=== PATIENT | male | born 1960 | race Caucasian/White ===

== ENCOUNTER 2017-12-12 21:00 | Emergency (ER) | payer OTHER ==
[2017-12-12 21:22] VITALS: BMI 32.1
[2017-12-12 21:30] VITALS: TEMP 98.1
--- NOTE | 2017-12-12 21:34 | ED PDOC ---
Arrival/HPI - General Chief Complaint: Shortness Of Breath Time Seen by Provider: 12/12/17 21:17 Historian: Patient - History of Present Illness Narrative History of Present Illness (Text): 12/12/17 21:33 A 57 year old male, whose past medical history includes diabetes, hyperlipidemia , asthma and cardiac bypass surgery 8 years ago, presents to the emergency department complaining of shortness of breath for 2 hours. Patient notes associated cough with mild phlegm. Patient used Ventolin and Prednisone 10 mg at home, with no relief. Patient denies any fever, chills, nausea, vomiting, abdominal pain, chest pain or any other complaints. PMD: Non [facility]-provider (Dr. Kendall) Time/Duration: Other (2 hours) Symptom Course: Unchanged Context: Home Past Medical History - Provider Review Nursing Documentation Reviewed: Yes - Cardiac Hx Cardiac Disorders: Yes Hx Congestive Heart Failure: Yes Hx Hypertension: Yes - Pulmonary Hx Respiratory Disorders: Yes Hx Asthma: Yes - Neurological Hx Neurological Disorder: No - HEENT Hx HEENT Disorder: No - Renal Hx Renal Disorder: No - Endocrine/Metabolic Hx Endocrine Disorders: Yes Hx Diabetes Mellitus Type 2: Yes - Hematological/Oncological Hx Blood Disorders: No - Integumentary Hx Dermatological Disorder: No - Musculoskeletal/Rheumatological Hx Musculoskeletal Disorders: No - Gastrointestinal Hx Gastrointestinal Disorders: No - Genitourinary/Gynecological Hx Genitourinary Disorders: No - Psychiatric Hx Psychophysiologic Disorder: No Hx Substance Use: No - Surgical History Hx Coronary Artery Bypass Graft: Yes Hx Open Heart Surgery: Yes Family/Social History - Physician Review Nursing Documentation Reviewed: Yes Family/Social History: No Known Family HX Smoking Status: Never Smoked Hx Alcohol Use: No Hx Substance Use: No Allergies/Home Meds Allergies/Adverse Reactions: Allergies No Known Allergies Allergy (Verified 12/12/17 21:22) Home Medications: Home Meds Medication Instructions Recorded Confirmed Aspirin [Aspirin Chewable] 81 mg PO DAILY 07/02/16 12/12/17 Atorvastatin [Lipitor] 20 mg PO DAILY 07/02/16 12/12/17 Carvedilol [Coreg] 6.25 mg PO BID 07/02/16 12/12/17 Glimepiride [Glimepiride] 2 mg PO BID 07/02/16 12/12/17 Lisinopril [Zestril] 10 mg PO DAILY 07/02/16 12/12/17 MetFORMIN [glucoPHAGE] 1,000 mg pe PO BID 07/02/16 12/12/17 Albuterol HFA [Ventolin HFA 90 2 puff IH [id number] PRN 12/12/17 12/12/17 mcg/actuation (8 g)] Review of Systems - Physician Review All systems were reviewed & negative as marked: Yes - Review of Systems Constitutional: absent: Fevers, Night Sweats Respiratory: SOB, Cough, Sputum Cardiovascular: absent: Chest Pain Gastrointestinal: absent: Abdominal Pain, Nausea, Vomiting Physical Exam Vital Signs Reviewed: Yes Vital Signs Temp Pulse Resp BP Pulse Ox 12/12/17 21:40 14 12/12/17 21:25 98.1 F 95 H 20 159/85 H 97 Temperature: Afebrile Blood Pressure: Hypertensive Pulse: Tachycardic Respiratory Rate: Normal Appearance: Positive for: Well-Appearing, Non-Toxic, Comfortable Pain Distress: None Mental Status: Positive for: Alert and Oriented X 3 - Systems Exam Head: Present: Atraumatic, Normocephalic Pupils: Present: PERRL Extroacular Muscles: Present: EOMI Conjunctiva: Present: Normal Mouth: Present: Moist Mucous Membranes Neck: Present: Normal Range of Motion Respiratory/Chest: Present: Good Air Exchange, Wheezes (Diffuse wheezing bilaterally), Retracting (+1 retraction). No: Respiratory Distress, Accessory Muscle Use Cardiovascular: Present: Regular Rate and Rhythm, Normal S1, S2. No: Murmurs Abdomen: Present: Normal Bowel Sounds. No: Tenderness, Distention, Peritoneal Signs Back: Present: Normal Inspection Upper Extremity: Present: Normal Inspection. No: Cyanosis, Edema Lower Extremity: Present: Normal Inspection. No: Edema, CALF TENDERNESS Neurological: Present: GCS=15, CN II-XII Intact, Speech Normal Skin: Present: Warm, Dry, Normal Color. No: Rashes Psychiatric: Present: Alert, Oriented x 3, Normal Insight, Normal Concentration Medical Decision Making ED Course and Treatment: 12/12/17 21:33 Impression: A 57 year old male with shortness of breath and productive cough Differential Diagnosis included but are not limited to: Asthma rule out PNA vs. Influenza Plan: -- Chest xray -- EKG -- Labs -- Blood culture -- Influenza A B stat -- Duoneb and Solumedrol -- Reassess and disposition Progress Notes: 12/12/17 22:01 Chest xray read and interpreted by me, which shows no active disease. 12/12/17 22:23 EKG shows NSR at 77 bpm, no ST elevations, nl intervals 12/12/17 23:[address] Das to f/u Influenza, reevaluate and disposition. - Critical Care Critical Care Minutes: 30 minutes - Lab Interpretations Lab Results: 12/12/17 22:00 12/12/17 22:00 Lab Results 12/12/17 22:00: Sodium 134, Potassium 4.1, Chloride 101, Carbon Dioxide 23, Anion Gap 13, BUN 19, Creatinine 0.7 L, Est GFR ( Amer) > 60, Est GFR ( Non-Af Amer) > 60, Random Glucose 229 H, Calcium 9.4, Lactate Dehydrogenase 412 , Total Creatine Kinase 81, Troponin I < 0.01, NT-Pro-B Natriuret Pep 112 12/12/17 22:00: WBC 10.5, RBC 4.72, Hgb 14.9, Hct 43.4, MCV 91.9, MCH 31.6, MCHC 34.3, RDW 13.4, Plt Count 334, MPV 9.9, Gran % 69.4 H, Lymph % (Auto) 21.4 L, [place] % (Auto) 6.4 H, Eos % (Auto) 2.5, Baso % (Auto) 0.3, Gran # 7.32 H, Lymph # 2.3, [place] # 0.7 H, Eos # 0.3, Baso # 0.03 I have reviewed the lab results: Yes - RAD Interpretation Radiology Orders: 12/12/17 21:36 CHEST PORTABLE [RAD] Stat - Medication Orders Current Medication Orders: Discontinued Medications Albuterol/Ipratropium (Duoneb 3 Mg/0.5 Mg (3 Ml) Ud) 3 ml IH Q15M OSWALD Stop: 12/12/17 22:16 Last Admin: 12/12/17 22:36 Dose: 3 ml Methylprednisolone (Solu-Medrol) 125 mg IVP STAT STA Stop: 12/12/17 21:36 Last Admin: 12/12/17 22:00 Dose: 125 mg IVP Administration Document 12/12/17 22:00 LADONNA (Rec: 12/12/17 22:35 [email or web address]) Charges for Administration # of IVP Administrations 1 - Scribe Statement The provider has reviewed the documentation as recorded by the Scribe Светлана Lilly Provider Scribe Attestation: All medical record entries made by the Scribe were at my direction and personally dictated by me. I have reviewed the chart and agree that the record accurately reflects my personal performance of the history, physical exam, medical decision making, and the department course for this patient. I have also personally directed, reviewed, and agree with the discharge instructions and disposition. Disposition/Present on Arrival - Present on Arrival Any Indicators Present on Arrival: No History of DVT/PE: No History of Uncontrolled Diabetes: No Urinary Catheter: No History of Decub. Ulcer: No History Surgical Site Infection Following: None - Disposition Have Diagnosis and Disposition been Completed?: Yes Diagnosis: Asthma exacerbation Disposition Time: 23:09 Condition: FAIR Referrals: Andrez Silver MD [Primary Care Provider] - Follow up with primary Forms: [employer] (Angolan)
[2017-12-12] MEDS: Albuterol-Ipratrop 3 mg / 0.5 (3 ml) UD IH SCH ×3 (22:00→23:15)
[2017-12-12 22:12] LABS: BASO # 0.03 K/mm3 (0.0-2.0); BASO % 0.3 % (0.0-3.0); EOS # 0.3 (0.0-0.7); EOS % 2.5 % (1.5-5.0); GRAN # 7.32 (1.4-6.5); GRAN % 69.4 % (50.0-68.0); HEMOGLOBIN 14.9 g/dL (14.0-18.0); LYMPH # 2.3 (1.2-3.4); LYMPH % 21.4 % (22.0-35.0); MEAN CELL VOLUME 91.9 fl (80.0-105.0); MEAN CORPUSCULAR HEMOGLOBIN 31.6 pg (25.0-35.0); MEAN CORPUSCULAR HGB CONC 34.3 g/dl (31.0-37.0); MEAN PLATELET VOLUME 9.9 fl (7.0-11.0); MONO # 0.7 (0.1-0.6); MONO % 6.4 % (1.0-6.0); RBC 4.72 10^6/uL (3.5-6.1); RED CELL DISTRIBUTION WIDTH 13.4 % (11.5-14.5); WHITE BLOOD COUNT 10.5 10^3/ul (4.5-11.0)
[2017-12-12 22:25] LABS: BLOOD UREA NITROGEN 19 mg/dL (7-21); CALCIUM 9.4 mg/dL (8.4-10.5); GFR AFRICAN-AMERICAN > 60; GFR NON-AFRICAN AMERICAN > 60
[2017-12-12 22:39] LABS: TROPONIN I < 0.01 ng/mL
[2017-12-12 22:47] LABS: B-TYPE NATRIURETIC PEPTIDE 112 pg/mL (0-450)
[2017-12-13 00:03] VITALS: BP 138/83; PULSE 91; RESP 22; O2SAT 97
--- NOTE | 2017-12-13 00:32 | ED PDOC ---
Physical Exam - Physical Exam Narrative Physical Exam (Text): 12/13/17 00:27 57 year old male, endorsed to me by Dr. Self, presents to the Emergency department complaining of shortness of breath for two hours. Patient additionally noted associated cough with mild phlegm. Upon re-evaluation at 12: 30 am, patient appeared stable, lungs were clear and oxygen saturation was at 97 %. No acute finding was observed on pending labs. Patient currently denies any new complaints. Vital Signs Reviewed: Yes Vital Signs Temp Pulse Resp BP Pulse Ox 12/13/17 00:18 22 97 12/12/17 23:59 91 H 22 138/83 97 12/12/17 23:06 89 16 148/87 98 12/12/17 21:40 14 12/12/17 21:25 98.1 F 95 H 20 159/85 H 97 Temperature: Afebrile Blood Pressure: Hypertensive Pulse: Regular Respiratory Rate: Normal Appearance: Positive for: Well-Appearing, Non-Toxic, Comfortable Pain Distress: None Mental Status: Positive for: Alert and Oriented X 3 - Systems Exam Head: Present: Atraumatic, Normocephalic Pupils: Present: PERRL Extroacular Muscles: Present: EOMI Conjunctiva: Present: Normal Mouth: Present: Moist Mucous Membranes Neck: Present: Normal Range of Motion Respiratory/Chest: Present: Clear to Auscultation, Good Air Exchange. No: Respiratory Distress, Accessory Muscle Use Cardiovascular: Present: Regular Rate and Rhythm, Normal S1, S2. No: Murmurs Abdomen: Present: Normal Bowel Sounds. No: Tenderness, Distention, Peritoneal Signs Back: Present: Normal Inspection Upper Extremity: Present: Normal Inspection. No: Cyanosis, Edema Lower Extremity: Present: Normal Inspection. No: Edema Neurological: Present: GCS=15, CN II-XII Intact, Speech Normal Skin: Present: Warm, Dry, Normal Color. No: Rashes Psychiatric: Present: Alert, Oriented x 3, Normal Insight, Normal Concentration Medical Decision Making ED Course and Treatment: 12/13/17 00:33 Impression: 57 year old male presents to the Emergency department for shortness of breath associated with cough. Plan: -- Reassess and disposition Progress Notes: Upon re-evaluation, patient appears stable and is in no acute distress. Patient denies any new complaints. Patient will be discharged with outpatient follow-up with primary care physician. - Lab Interpretations Lab Results: 12/12/17 22:00 12/12/17 22:00 Lab Results 12/12/17 22:43: Influenza Typ A,B (EIA) Negative for flu a/b 12/12/17 22:00: Sodium 134, Potassium 4.1, Chloride 101, Carbon Dioxide 23, Anion Gap 13, BUN 19, Creatinine 0.7 L, Est GFR ( Amer) > 60, Est GFR ( Non-Af Amer) > 60, Random Glucose 229 H, Calcium 9.4, Lactate Dehydrogenase 412 , Total Creatine Kinase 81, Troponin I < 0.01, NT-Pro-B Natriuret Pep 112 12/12/17 22:00: WBC 10.5, RBC 4.72, Hgb 14.9, Hct 43.4, MCV 91.9, MCH 31.6, MCHC 34.3, RDW 13.4, Plt Count 334, MPV 9.9, Gran % 69.4 H, Lymph % (Auto) 21.4 L, [place] % (Auto) 6.4 H, Eos % (Auto) 2.5, Baso % (Auto) 0.3, Gran # 7.32 H, Lymph # 2.3, [place] # 0.7 H, Eos # 0.3, Baso # 0.03 - RAD Interpretation Radiology Orders: 12/12/17 21:36 CHEST PORTABLE [RAD] Stat - Medication Orders Current Medication Orders: Discontinued Medications Albuterol/Ipratropium (Duoneb 3 Mg/0.5 Mg (3 Ml) Ud) 3 ml IH Q15M OSWALD Stop: 12/12/17 22:16 Last Admin: 12/12/17 23:15 Dose: 3 ml Methylprednisolone (Solu-Medrol) 125 mg IVP STAT STA Stop: 12/12/17 21:36 Last Admin: 12/12/17 22:00 Dose: 125 mg IVP Administration Document 12/12/17 22:00 JOL (Rec: 12/12/17 22:35 [email or web address]) Charges for Administration # of IVP Administrations 1 Disposition/Present on Arrival - Present on Arrival Any Indicators Present on Arrival: No History of DVT/PE: No History of Uncontrolled Diabetes: No Urinary Catheter: No History of Decub. Ulcer: No History Surgical Site Infection Following: None - Disposition Have Diagnosis and Disposition been Completed?: Yes Diagnosis: Asthma exacerbation Disposition: HOME/ ROUTINE Disposition Time: 00:30 Condition: IMPROVED Discharge Instructions (ExitCare): Asthma (ED) Additional Instructions: Thank you for letting us take care of you today. The emergency medical care you received today was directed at your acute symptoms. If you were prescribed any medication, please fill it and take as directed. It may take several days for your symptoms to resolve. Return to the Emergency Department if your symptoms worsen, do not improve, or if you have any other problems. Please contact your doctor or call one of the physicians/clinics you have been referred to that are listed on the Patient Visit Information form that is included in your discharge packet. Bring any paperwork you were given at discharge with you along with any medications you are taking to your follow up visit. Our treatment cannot replace ongoing medical care by a primary care provider (PCP) outside of the emergency department. Thank you for allowing the [facility] team to be part of your care today. Follow up with your doctor in 2-3 days for re-evaluation and further management. Prescriptions: predniSONE [Prednisone] 40 mg PO DAILY #10 tab Referrals: Andrez Silver MD [Primary Care Provider] - Follow up with primary Forms: [employer] ([place])
--- NOTE | 2017-12-13 08:50 | RAD ---
HISTORY: sob r/o pna COMPARISON: No prior. FINDINGS: LUNGS: The lungs are well inflated and clear. PLEURA: No significant pleural effusion identified, no pneumothorax apparent. CARDIOVASCULAR: The heart is normal in size. There are postsurgical changes of median sternotomy. OSSEOUS STRUCTURES: No significant abnormalities. VISUALIZED UPPER ABDOMEN: Normal. OTHER FINDINGS: None. IMPRESSION: No active pulmonary disease.
--- NOTE | 2017-12-14 16:12 | CARD ---
APPROVED REPORT EKG Measurement Heart [id number] <Conclusion> Normal sinus rhythm Possible Inferior infarct, age undetermined Abnormal ECG
== END 2017-12-13 00:40 | disposition home or self-care (01) ==
LOC: ED 21:00
DX: J45.901 Unspecified asthma with (acute) exacerbation (principal); I10 Essential (primary) hypertension; E11.9 Type 2 diabetes mellitus without complications; Z95.1 Presence of aortocoronary bypass graft
CPT/HCPCS: 71045; 80048; 82550; 83615; 83880; 84484; 85025; 87040; 87804; 93005; 96374; 99285; J2930